=== PATIENT | male | born 1960 | race Caucasian/White ===

== ENCOUNTER 2016-09-04 11:57 | Emergency (ER) | payer BC ==
[~2016-09-04] VITALS: Ht 182.9 cm; Wt 75.0 kg
[2016-09-04 11:58] VITALS: BP 165/77; PULSE 87; RESP 22; TEMP 98.3; O2SAT 99
[2016-09-04] MEDS ORDERED: SODIUM CHLORIDE 0.9% FLUSH 10 ML FLUSH IV FLUSH PRN (12:15)
--- NOTE | 2016-09-04 12:28 | PD ---
HPI Chief Complaint: Flank/Kidney Pain Time Seen by Provider: 12:18 Travel History International Travel<30 days: No Contact w/Intl Traveler<30days: No Traveled to known affect area: No History of Present Illness HPI 56-year-old male with history of kidney stones, presents to the ER for sudden onset of right flank pain this morning, nauseous, states the pain is currently a 10 out of 10 and radiates to his right testicle. He denies any urinary symptoms, fevers, or any other symptoms. He states that he feels like his previous kidney stone symptoms. Modifying Factors: None Associated Signs & Symptoms: Right flank pain Risk Factors: Kidney stone PFSH Past Medical History Diminished Hearing: No Social History Tobacco Use: No Allergies-Medications (Allergen,Severity, Reaction): Coded Allergies: No Known Allergies (Unverified , 09/04/16) Review of Systems Except as stated in HPI: all other systems reviewed are Neg Physical Exam Narrative GENERAL: Well-developed middle age white male patient currently in moderate distress. Awake and oriented 3. SKIN: Focused skin assessment warm/dry. HEAD: Atraumatic. Normocephalic. EYES: Pupils equal and round. No scleral icterus. No injection or drainage. ENT: No nasal bleeding or discharge. Mucous membranes pink and moist. NECK: Trachea midline. No JVD. CARDIOVASCULAR: Regular rate and rhythm. No murmur appreciated. RESPIRATORY: No accessory muscle use. Clear to auscultation. Breath sounds equal bilaterally. GASTROINTESTINAL: Abdomen soft, non-tender, nondistended. Hepatic and splenic margins not palpable. BACK: Right CVA tenderness. No rash. No point tenderness on palpation of the spine. GENITOURINARY: Circumcised. Testes descended bilaterally without evidence of rotation. No lesions or erythema. No urethral discharge. MUSCULOSKELETAL: No obvious deformities. No clubbing. No cyanosis. No edema. NEUROLOGICAL: Awake and alert. No obvious cranial nerve deficits. Motor grossly within normal limits. Normal speech. PSYCHIATRIC: Appropriate mood and affect; insight and judgment normal. Data Data Last Documented VS Vital Signs Date Time Temp Pulse Resp B/P Pulse Ox O2 Delivery O2 Flow Rate FiO2 09/04/16 13:31 20 09/04/16 11:58 98.3 87 165/77 99 Orders Urinalysis - C+S If Indicated (09/04/16 12:09) Complete Blood Count With Diff (09/04/16 12:11) Comprehensive Metabolic Panel (09/04/16 12:11) Lipase (09/04/16 12:11) Ct Abd/Pel W/O Iv Contrast (09/04/16 12:11) Iv Access Insert/Monitor (09/04/16 12:11) Ecg Monitoring (09/04/16 12:11) Oximetry (09/04/16 12:11) Sodium Chloride 0.9% Flush (Ns Flush) (09/04/16 12:15) Hydromorphone Pf Inj (Dilaudid Pf Inj) (09/04/16 12:30) Ondansetron Inj (Zofran Inj) (09/04/16 12:30) Sodium Chlor 0.9% 1000 Ml Inj (Ns 1000 M (09/04/16 12:30) Ketorolac Inj (Toradol Inj) (09/04/16 13:00) Labs Laboratory Tests Test 09/04/16 09/04/16 12:15 12:30 White Blood Count 13.2 TH/MM3 Red Blood Count 4.16 MIL/MM3 Hemoglobin 13.4 GM/DL Hematocrit 40.0 % Mean Corpuscular Volume 96.1 FL Mean Corpuscular Hemoglobin 32.3 PG Mean Corpuscular Hemoglobin 33.6 % Concent Red Cell Distribution Width 13.0 % Platelet Count 258 TH/MM3 Mean Platelet Volume 6.7 FL Neutrophils (%) (Auto) 83.6 % Lymphocytes (%) (Auto) 10.9 % Monocytes (%) (Auto) 4.4 % Eosinophils (%) (Auto) 1.0 % Basophils (%) (Auto) 0.1 % Neutrophils # (Auto) 11.0 TH/MM3 Lymphocytes # (Auto) 1.4 TH/MM3 Monocytes # (Auto) 0.6 TH/MM3 Eosinophils # (Auto) 0.1 TH/MM3 Basophils # (Auto) 0.0 TH/MM3 CBC Comment DIFF FINAL Differential Comment Sodium Level 137 MEQ/L Potassium Level 4.2 MEQ/L Chloride Level 105 MEQ/L Carbon Dioxide Level 21.2 MEQ/L Anion Gap 11 MEQ/L Blood Urea Nitrogen 23 MG/DL Creatinine 2.13 MG/DL Estimat Glomerular Filtration 32 ML/MIN Rate Random Glucose 122 MG/DL Calcium Level 9.1 MG/DL Total Bilirubin 0.4 MG/DL Aspartate Amino Transf 18 U/L (AST/SGOT) Alanine Aminotransferase 28 U/L (ALT/SGPT) Alkaline Phosphatase 144 U/L Total Protein 8.0 GM/DL Albumin 4.3 GM/DL Lipase 124 U/L Urine Color YELLOW Urine Turbidity CLEAR Urine pH 5.5 Urine Specific [place] 1.015 Urine Protein 30 mg/dL Urine Glucose (UA) TRACE mg/dL Urine Ketones NEG mg/dL Urine Occult Blood LARGE Urine Nitrite NEG Urine Bilirubin NEG Urine Urobilinogen LESS THAN 2.0 MG/DL Urine Leukocyte Esterase NEG Urine RBC 142 /hpf Urine WBC 1 /hpf Urine Squamous Epithelial <1 /hpf Cells Microscopic Urinalysis Comment CULT NOT INDICATED MDM Medical Decision Making Medical Screen Exam Complete: Yes Emergency Medical Condition: Yes Medical Record Reviewed: Yes Interpretation(s) Laboratory Tests Test 09/04/16 09/04/16 12:15 12:30 White Blood Count 13.2 TH/MM3 (4.0-11.0) Red Blood Count 4.16 MIL/MM3 (4.50-5.90) Mean Platelet Volume 6.7 FL (7.0-11.0) Neutrophils (%) (Auto) 83.6 % (16.0-70.0) Neutrophils # (Auto) 11.0 TH/MM3 (1.8-7.7) Blood Urea Nitrogen 23 MG/DL (7-18) Creatinine 2.13 MG/DL (0.60-1.30) Estimat Glomerular Filtration 32 ML/MIN (>89) Rate Random Glucose 122 MG/DL (74-106) Alkaline Phosphatase 144 U/L (45-117) Urine Protein 30 mg/dL (NEG-TRACE) Urine Occult Blood LARGE (NEG) Urine RBC 142 /hpf (0-3) Last 24 hours Impressions Abdomen/Pelvis CT 09/04/16 1211 Signed Impressions: Service Date/Time: Sunday, September 04, 2016 12:58 - CONCLUSION: 1. There is a 3 mm stone in the mid aspect of the right ureter with moderate postobstructive changes surrounding the right kidney and moderate hydronephrotic change. 2. Old burst fracture of L2 with postsurgical changes. Dav Walker MD Differential Diagnosis Right flank painsrenal colic versus pyelonephritis versus muscular skeletal Narrative Course Patient was given IV fluids, Dilaudid, and Zofran in the ER. Lab work shows elevated creatinine, patient states he has had chronic kidney disease and has been following up with a headrig sawyer. UA shows blood and CAT scan shows a 3 mm stone in the mid right ureter consistent with patient's pain. At this point , my plan would be to give him symptomatic relief or pain and follow-up with urology. Return for any worsening in pain, any fevers, vomiting, new symptoms as needed. The plan has been discussed with the patient and he states understanding. Diagnosis Primary Impression: Renal colic on right side Med/Other Pt SpecificInfo: Prescription(s) given Scripts Tamsulosin (Flomax)0.4 Mg Cap0.4 Mg PO HS #7 CAP Ref 0 Prov:Gene Johnson MD 09/04/16 Hydrocodone-Acetaminophen (Lortab)5-325 Mg Tab1-2 Tab PO Q6H PRN (PAIN) #20 TAB Ref 0 Prov:Gene Johnson MD 09/04/16 Ibuprofen (Motrin Ib)200 Mg [id number] Mg PO Q6HR PRN (PAIN SCALE 1 TO 10) #21 Prov:Gene Johnson MD 09/04/16 Disposition: 01 DISCHARGE HOME Condition: Stable Gene Johnson MD Sep 04, 2016 12:28
[2016-09-04] MEDS ORDERED: HYDROmorphone HCL PF 1 MG/ML VIAL IV PUSH ONE (12:30)
[2016-09-04] MEDS ORDERED: SODIUM CHLOR 0.9% 1000 ML INJ 1,000 ML IV ONE (12:30)
[2016-09-04] MEDS ORDERED: ONDANSETRON HCL 4 MG/2 ML VIAL IV PUSH ONE (12:30)
[2016-09-04 12:32] LABS: BASOPHIL % 0.1 % (0.0-2.0); EOSINOPHIL # 0.1 TH/MM3 (0-0.4); HEMO FLAGS DIFF FINAL; LYMPH % 10.9 % (9.0-44.0); LYMPHOCYTE # 1.4 TH/MM3 (1.0-4.8); MEAN CELL VOLUME 96.1 FL (80.0-100.0); MEAN CORPUSCULAR HEMOGLOBIN 32.3 PG (27.0-34.0); MEAN CORPUSCULAR HGB CONC 33.6 % (32.0-36.0); MONO % 4.4 % (0.0-8.0); NEUT % 83.6 % (16.0-70.0); PLATELET COUNT 258 TH/MM3 (150-450); RED BLOOD COUNT 4.16 MIL/MM3 (4.50-5.90); WHITE BLOOD COUNT 13.2 TH/MM3 (4.0-11.0)
[2016-09-04 12:44] LABS: ANION GAP 11 MEQ/L (5-15); AST (GOT) 18 U/L (15-37); BICARBONATE 21.2 MEQ/L (21.0-32.0); BLOOD UREA NITROGEN 23 MG/DL (7-18); CHLORIDE 105 MEQ/L (98-107); GLOMERULAR FILTRATION RATE 32 ML/MIN (>89); POTASSIUM 4.2 MEQ/L (3.5-5.1); SODIUM (NA) 137 MEQ/L (136-145)
[2016-09-04 12:45] LABS: ALT (GPT) 28 U/L (12-78)
[2016-09-04 12:47] LABS: ALKALINE PHOSPHATASE 144 U/L (45-117); TOTAL BILIRUBIN ADULT 0.4 MG/DL (0.2-1.0)
[2016-09-04 12:51] LABS: BLOOD, URINE LARGE (NEG); COMMENT (UR) CULT NOT INDICATED; CULTURE IF INDICATED CULT NOT INDICATED; GLUCOSE,URINE TRACE mg/dL (NEG); KETONE, URINE NEG (NEG); NITRITE,URINE NEG (NEG); PH, URINE 5.5 (5.0-8.5); SQUAMOUS EPITHELIAL CELL URINE <1 /hpf (0-5); URINE COLOR YELLOW (YELLW/STRAW)
[2016-09-04] MEDS ORDERED: KETOROLAC TROMETHAMINE 30 MG/ML (IVP) VIAL IV PUSH ONE (13:00)
--- NOTE | 2016-09-04 13:20 | RADRPT ---
EXAM DATE/TIME: 09/04/2016 12:58 [facility] COMPARISON: No previous studies available for comparison. INDICATIONS : Right lower flank pain, history of kidney stones ORAL CONTRAST: No oral contrast ingested. RADIATION DOSE: 13.84 CTDIvol (mGy) MEDICAL HISTORY : Renal calculi. SURGICAL HISTORY : None. ENCOUNTER: Initial ACUITY: 1 day PAIN SCALE: 8/10 LOCATION: Right lower quadrant TECHNIQUE: Volumetric scanning of the abdomen and pelvis was performed. Using automated exposure control and ad justment of the mA and/or kV according to patient size, radiation dose was kept as low as reasonably achievable to obtain optimal diagnostic quality images. FINDINGS: Right kidney/ureter: There are moderate hydronephrotic changes in post obstructive changes surrounding right kidney. There are at least 2 punctate stones seen within the collecting system of the right kidney both measure ap proximately 1 mm. There is dilation of the right ureter down to the level of the mid pelvis. There is a 3 mm stone evident within the right ureter. Distally, the ureter returns to normal caliber. Left kidney: The left kidney is normal in size. No stones are seen. The left ureter is followed throughout its cou rse and is unremarkable in appearance. Bladder: No stones are identified within the bladder. CT source data: The limited portion of lung base visualized is clear. The liver, spleen, pancreas and adrenal glands are intact. There is no retroperitoneal adenopathy. No free air is seen. There are postsurgical jackson es in the lower thoracic and upper lumbar spine. CONCLUSION: 1. There is a 3 mm stone in the mid aspect of the right ureter with moderate postobstructive changes surrounding the right kidney and moderate hydronephrotic change. 2. Old burst fracture of L2 with postsurgical changes. Dav Walker MD on September 04, 2016 at 13:16 Board Certified Radiologist. This report was verified electronically.
[2016-09-04 13:31] VITALS: RESP 20
[2016-09-04] MEDS ORDERED: TAMS5CAP PO (13:40)
[2016-09-04] MEDS ORDERED: IBUP-1129 PO (13:40)
[2016-09-04] MEDS ORDERED: HYDR-3533 PO (13:40)
== END 2016-09-04 13:40 | disposition home or self-care (01) ==
LOC: NEPC 11:57
DX: N23 Unspecified renal colic (principal); N18.9 Chronic kidney disease, unspecified; N20.1 Calculus of ureter
CPT/HCPCS: 74176; 80053; 81001; 83690; 85025; 96374; 96375; 99285; J1170; J1885; J2405; J7030